=== PATIENT | male | born 1965 ===

== ENCOUNTER 2025-08-13 11:07 | Outpatient (REF) | payer OTHER, SELFPAY ==
[2025-08-13 17:45] LABS: MANUAL DIFF FLAG NO
[2025-08-13 17:55] LABS: Appearance Urine Clear; Glucose Urine UA Negative (Negative); PH 6.5 (5.0-9.0); Specific Gravity - Urine 1.020 (1.005-1.025)
[2025-08-13 18:05] LABS: Hematocrit 47.0 % (42.0-52.0); Hemoglobin 15.3 g/dl (14.0-18.0); Imm Gran Abs Auto 0.01 X10*3/uL (0.00-0.03); Imm Gran Pct Auto 0.1 % (0.0-0.4); Lymphocytes Absolute Auto 4.2 X10*3/uL (1.2-4.9); Mean Corpuscular HGB Conc 32.6 g/dl (31.0-36.0); Mean Corpuscular Hemoglobin 29.5 pg (27.0-33.0); Mean Corpuscular Volume 90.7 fL (80.0-98.0); NRBC Abs Auto 0.000 X10*3/uL (0.0-0.012); NRBC Pct Auto 0.0 /100WBC (0.0-0.2); Platelet Count 245 X10*3/uL (160-400); Red Blood Count 5.18 X10*6/uL (4.60-5.80); White Blood Count 8.2 X10*3/uL (4.8-10.8)
[2025-08-13 18:34] LABS: Alanine Aminotransferase 100 U/L (0-40); Albumin Level 4.7 g/dL (3.5-5.0); Alkaline Phosphatase 140 U/L (39-117); Anion Gap 14 (12-20); Aspartate Amino Transferase 47 U/L (5-37); Blood Urea Nitrogen 14 mg/dL (9-16); Calcium 9.6 mg/dL (8.4-10.2); Carbon Dioxide 26 mmol/L (22-29); Chloride 105 mmol/L (96-108); Cholesterol 161 mg/dL (<200); Estimated Glomerular Filt Rate > 60; HDL Cholesterol 56 mg/dL (>40); Magnesium 2.0 mg/dL (1.6-2.6); Potassium 3.7 mmol/L (3.3-5.1); Sodium 141 mmol/L (135-145); Total Protein 8.2 g/dL (6.5-8.0); Triglycerides 75 mg/dL (<150)
[2025-08-13 18:55] LABS: Folate 9.9 ng/mL (> or = 4.0); Vitamin B12 518 pg/mL (200-900)
[2025-08-14 05:49] LABS: HBS Num1 0.10 mIU/mL (0-7.99); HBsAGNum1 0.48 S/CO (0.00-0.99); HIV Num 1 0.07 S/CO (0.00-0.99); Hepatitis B Surface Antigen Negative (Negative); ~HepC Num1 9.83 S/CO (0.00-0.79); ~Hepatitis B Surface Antibody NONREACTIVE (Nonreactive); ~Hepatitis C Antibody Reactive (Nonreactive)
[2025-08-14 06:03] LABS: Syphilis Screen Nonreactive (Nonreactive)
[2025-08-17 17:58] LABS: VITAMIN D (1,25 OH) D3 66 pg/mL; Vit D (1,25-Dihydroxy) Total 66 pg/mL (18-72); Vitamin D (1,25 OH) D2 <8 pg/mL
[2025-08-17 21:03] LABS: HCV Log PCR 5.91 Log IU/mL (NOT DETECTED)
== END 2025-08-13 11:08 | disposition home or self-care (01) ==
LOC: HO.HKASLDS 11:07
PROVIDERS: PCP Student in an Organized Health Care Education/Training Program; Visit Provider Student in an Organized Health Care Education/Training Program
DX: Z13.9 Encounter for screening, unspecified (principal); B36.0 Pityriasis versicolor; R10.13 Epigastric pain; F19.11 Other psychoactive substance abuse, in remission; R53.83 Other fatigue; H61.23 Impacted cerumen, bilateral; L85.3 Xerosis cutis; Z86.19 Personal history of other infectious and parasitic diseases; Z87.891 Personal history of nicotine dependence
CPT/HCPCS: 36415; 80053; 80061; 81003; 82607; 82652; 82746; 83036; 83735; 84443; 85025; 86706; 86780; 86803; 87340; 87389; 87522

== ENCOUNTER 2025-08-31 10:28 | Outpatient (AMB) | payer OTHER, SELFPAY ==
[2025-08-31 10:37] VITALS: BP 134/68; PULSE 61; TEMP 36.4; O2SAT 97; BMI 25.2
--- NOTE | 2025-08-31 10:37 | MHC.PC.OV ---
Vital Signs 08/31/25 10:37 Height 5 ft 9 in Weight 171 lb BMI 25.2 BP 134/68 Blood Pressure Location Rt brachial Position Sitting Pulse 61 Pulse Source Pulse Oximeter Temp 97.6 F Temp Source Oral Pulse Oximetry (%) 97 Oxygen Delivery Method Room Air Intake Visit Reasons: 2 wk - lab review Accompanied by: Self / Same As Patient Allergies No Known Allergies Allergy (Verified 08/31/25 10:38) Medication List - Last Reconciled 08/31/25 by Miky Nicholson MD ammonium lactate 5% (Lac-Hydrin Five) 1 appl topical BID carbamide peroxide 6.5% (Debrox) 5 drps otic (ears) Q12H 4 days ketoconazole 2% 1 appl topical 3XW Tobacco use date assessed: 08/31/25 Dental Screening Dental Screen Date: 08/31/25 Did you have a dental visit in the last 12 months?: Yes HPI HPI Comments History of Present Illness Details History of Present Illness The patient is a 60 year old male presenting for follow-up to review lab results and manage chronic conditions. Chronic Hepatitis C: The patient has a known history of chronic hepatitis C but reports that he has never received treatment for this condition. History of Opioid Use Disorder: The patient reports a history of heroin and fentanyl use. He states his last use was in the previous year and that he is no longer using illicit substances. Bipolar Disorder: The patient has a history of bipolar disorder. He was previously on medication for this condition while in [place] but is not currently taking any medication. He does not recall the name of the previous medication. Pulmonary Nodule: A test from August 2024 revealed a nodule in the base of the left lung. The patient reported that he was not previously aware of this finding. Medications: - The patient is not currently taking any medications but reports previously being treated with an unspecified medication for bipolar disorder while in [place]. Social History: - Substance Use: The patient has a history of heroin and fentanyl use and reports his last use was in the previous year. - Tobacco Use: The patient has a history of smoking and reports that he has quit. - Employment: He is currently employed and works. - Social Support: He reports attending shinto regularly. Diagnostic Results: - CBC: White blood cells, red blood cells, hemoglobin, and platelets are normal. - CMP: Sodium, potassium, electrolytes, and kidney function are normal. - Glucose: Normal, patient is not prediabetic. - Minerals: Calcium and magnesium are normal. - Liver Function Tests: Liver enzymes are elevated. - Lipid Panel: Cholesterol, triglycerides are normal. - Vitamins: Vitamin B12, vitamin D, and folate are normal. - Thyroid function tests: Normal. - Urinalysis: Normal. - Infectious Disease Serologies: Positive for hepatitis C; negative for syphilis, hepatitis B, and HIV. - Imaging: A prior test from August 2024 revealed a nodule in the base of the left lung. Past Medical History - Chronic hepatitis C, untreated. - Bipolar disorder, not currently on medication. - Opioid use disorder in remission, with a history of heroin and fentanyl use. - Pulmonary nodule in the left lung base, identified in August 2024. Health Maintenance - The patient was counseled on the importance of treating his chronic hepatitis C. - Recent bloodwork included screening for hepatitis B, hepatitis C, HIV, and syphilis. - The patient affirms he has stopped using illicit substances and has quit smoking. [facility] Medical History Xerosis cutis Impacted cerumen of both ears Fatigue History of tobacco use Substance abuse in remission Dyspepsia History of hepatitis C virus infection Tinea versicolor Hepatitis C Family History Family/Other Cancer Sister Diabetes Brother Diabetes Mother Diabetes Social History (Reviewed 08/31/25 @ 10:38 by Lenora Briseno [facility]) Housing: House Alcohol intake: former Patient Tobacco Use Status: Former Tobacco user Years Smoked: stopped smoke a couple months ago e-Cigarette/Vaping Use: Never Used service: No Current occupational status: employed Current occupation: [employer] Cognitive needs: No Hearing needs: No Vision needs: Yes Questionnaire PHQ-9 Over the last 2 weeks, how often have you been bothered by any of the following problems? 1. Little interest or pleasure in doing things: several days 2. Feeling down, depressed, or hopeless: not at all 3. Trouble falling or staying asleep, or sleeping too much: several days 4. Feeling tired or having little energy: several days 5. Poor appetite or overeating: not at all 6. Feeling bad about yourself - or that you are a failure or have let yourself or your family down: not at all 7. Trouble concentrating on things, such as reading the newspaper or watching television: not at all 8. Moving or speaking so slowly that other people could have noticed. Or the opposite - being so fidgety or restless that you have been moving around a lot more than usual: not at all 9. Thoughts that you would be better off or of hurting yourself in some way: not at all Total score: 3 Depression Screening Interpretation: Negative Depression Screening Done: Yes 24869 - PHQ-9 Billing: Yes Source: Developed by Drs. Abhi Lennon, Yenny Morillo, Brendan Meehan and colleagues, with an educational tye from [employer]. Thrive Questionnaire Date Thrive assessed: 08/31/25 I am a: Patient What is your living situation today?: I have a steady place to live Within the past 12 months, did the food you bought not last and you didn't have the money to get more?: Never true Within the past 12 months, did you worry whether your food would run out before you got money to buy more?: Never true Do you have trouble paying for medicines?: No Do you have trouble getting transportation to medical appointments?: No Do you have trouble paying your heating and electricity bill?: No Do you have trouble taking care of your child, family member or friend?: No Are you currently unemployed and looking for a job?: No Are you interested in more education?: No Currently or been in a relationship where the following occur: No concerns reported THRIVE Score: 0 AUDIT C Alcohol Use Questionnaire (AUDIT-C) 1. How often do you have a drink containing alcohol?: Monthly or less 2. How many drinks containing alcohol do you have on a typical day when you are drinking?: 1 or 2 3. How often do you have six or more drinks on one occasion?: Less than monthly Total Score: 2 ERICA-7 AMB Questionnaire ERICA-7 Date ERICA - 7 assessed: 08/31/25 Feeling nervous, anxious, or on edge: 1 = Several days Not being able to stop or control worryin = Several days Worrying too much about different things: 1 = Several days Trouble relaxin = Several days Being so restless that it is hard to sit still: 0 = Not at all Becoming easily annoyed or irritable: 1 = Several days Feeling afraid as if something awful might happen: 0 = Not at all Total ERICA-7 score (0-4 normal; 5-9 mild; 10-14 moderate; 15-21 severe): 5 Source: Developed by Drs. Abhi Lennon, Yenny Morillo, Brendan Meehan and colleagues, with an educational tye from [employer]. ERICA-7 Assessment Billing ERICA-7 Assessment Tool: ERICA-7 Assessment 67347 Review of Systems Narrative Review of Systems - A formal review of systems was not conducted; the visit focused on reviewing past medical records and recent lab results. 10-point ROS reviewed and negative except as noted in HPI Physical exam (Primary Care) Vital Signs: Last Vital Signs Temp 97.6 F 08/31/25 10:37 Pulse 61 08/31/25 10:37 BP 134/68 08/31/25 10:37 Pulse Ox 97 08/31/25 10:37 Oxygen Delivery Method Room Air 08/31/25 10:37 BMI result Body Mass Index 25.2 Tobacco/Smoking Status: Tobacco use Status Tobacco use date assessed 08/31/25 08/31/25 10:38 Patient Tobacco Use Status Former Tobacco user 08/31/25 10:38 e-Cigarette/Vaping Use Never Used 08/31/25 10:38 PHQ-9: PHQ-9 Score PHQ-9: Total score 3 08/31/25 10:40 Depression Screening Interpretation: Negative Thrive Assessment: Date of Thrive Assessment Date Thrive assessed 08/31/25 08/31/25 10:38 Currently or been in a relationship where the following occur: No concerns reported Narrative Physical Exam General: Well-appearing, in no acute distress. Vital signs: Within normal limits. HEENT: Normocephalic, atraumatic. PERRLA, EOMI. Conjunctiva clear, sclera anicteric. Oropharynx clear, mucous membranes moist. TMs intact bilaterally. Neck: Supple, no lymphadenopathy, no thyromegaly, no JVD or carotid bruits. Cardiovascular: RRR, normal S1/S2, no murmurs, rubs, or gallops. Peripheral pulses 2+ and symmetric. No edema. Respiratory: Lungs clear to auscultation bilaterally, no wheezes, rales, or rhonchi. Normal effort. Noted nodule at the base of the left lung. Abdomen: Soft, non-tender, non-distended. Normoactive bowel sounds. No hepatosplenomegaly, no masses. Liver enzymes elevated. MSK: Full range of motion, no joint swelling or deformity. Normal gait. Skin: Warm, dry, intact. No rashes, lesions, or pallor. Neuro: Alert and oriented x3. Cranial nerves II-XII intact. Strength 5/5 throughout. Sensation intact. Reflexes 2+ symmetric. Normal coordination and gait. Psych: Appropriate mood and affect. Normal judgment and insight. History of bipolar disorder, currently not on medication. Coding Level of Care Code Est Pt Level 3 (70697) Add On Problem Visit Only Diagnoses Hepatitis C B19.20 Lung nodule R91.1 History of tobacco use Z87.891 Substance abuse in remission F19.11 History of opioid use F11.91 Additional Codes ERICA-7 Assessment Billing - ERICA-7 Assessment Tool: ERICA-7 Assessment 59395 ([id number]) PHQ-9 - 18413 - PHQ-9 Billing: Yes ([id number]) Assessment & Plan Assessment & Plan (1) Hepatitis C: Code(s): B19.20 - Unspecified viral hepatitis C without hepatic coma Category: Medical (2) Lung nodule: Code(s): R91.1 - Solitary pulmonary nodule Category: Medical (3) History of tobacco use: Code(s): Z87.891 - Personal history of nicotine dependence Category: Social Hx (4) Substance abuse in remission: Code(s): F19.11 - Other psychoactive substance abuse, in remission Category: Medical (5) History of opioid use: Code(s): F11.91 - Opioid use, unspecified, in remission Category: Medical Plan Consent The plan of care, including referrals to gastroenterology, infectious diseases, and pulmonology, was discussed with the patient. He was informed about the need for further blood work, an ultrasound of the liver, and a follow-up CT scan of the lungs. The patient verbally agreed to the proposed plan. Patient was informed and verbally consented to the use of an ambient scribe for clinic note documentation during this visit. Plan 1. Chronic Hepatitis C - Refer to Gastroenterology for management. - Refer to Infectious Diseases for management. - Order blood work today to assess the extent of liver damage. - Order a liver sonogram. 2. Pulmonary Nodule - Refer to Pulmonology for further evaluation and management. - The specialist will arrange for a follow-up CT scan. 3. Bipolar Disorder - Will attempt to obtain prior medical records from his previous physician in [place] to clarify past treatment. Discussion Notes I reviewed the patient's records and recent lab results with him. I informed him that his lab work is largely normal except for elevated liver enzymes and a positive result for hepatitis C. I also made him aware of a finding of a nodule in his left lung from a test in August 2024, which was new information to him. We discussed a plan to address these findings, which includes referrals to gastroenterology and infectious diseases for his hepatitis C, as well as a referral to pulmonology for the lung nodule. He will have blood drawn today to assess liver damage and will be scheduled for a liver sonogram. I reassured him that modern treatments for hepatitis C are effective and have fewer side effects than older medications. We also discussed the plan to request his medical records from his previous provider in [place] to review his past treatment for bipolar disorder. Patient Instructions - You will need to get blood drawn today to check your liver. - The clinic will call you to schedule an ultrasound of your liver. - We are referring you to a liver specialist (Gastroenterology) and an infection specialist (Infectious Diseases) to discuss treatment for your hepatitis C. They will contact you to schedule appointments. - We are also referring you to a lung specialist (Pulmonology) to check on the spot found on your lung. They will call you for an appointment and will likely order another CAT scan. - Please give the hotel front desk clerk staff the name and contact information for your previous doctor in [place] so we can request your medical records. - It is very important to follow up with these specialists to get the care you need. Medical Decision Making The patient is a 60-year-old male with a complex medical history including untreated chronic hepatitis C, bipolar disorder, and a history of opioid use, presenting for review of records and lab results. Lab work confirmed positive hepatitis C with elevated liver enzymes, necessitating specialist evaluation to stage the liver disease and initiate treatment. Referrals to both gastroenterology and infectious diseases are indicated for comprehensive management. The incidental finding of a left lower lobe pulmonary nodule, of which the patient was unaware, is concerning and requires prompt follow-up with pulmonology for further imaging to assess for stability or growth and to rule out malignancy. The patient's history of bipolar disorder is currently unmanaged, and he is not on medication. Obtaining prior records from his [place] physician is a critical first step to re-establishing psychiatric care and ensuring continuity of treatment. The plan focuses on addressing these significant medical issues through appropriate specialty referrals and diagnostic workup. Total Time Statement 20 min Total time spent caring for the patient today includes pre-visit chart review, documentation, review of laboratory and diagnostic imaging results, medication reconciliation, medically necessary evaluation, counseling on diagnoses, care coordination, ordering appropriate tests and medications, review of tests performed by other providers, reporting test results to the patient, and communication with other healthcare providers. Orders: Orders US abdomen limited Today B19.20 - Unspecified viral hepatitis C without hepatic coma Liver Fibrosis Pnl Today B19.20 - Unspecified viral hepatitis C without hepatic coma Referrals Gastroenterology Referral B19.20 - Unspecified viral hepatitis C without hepatic coma Infectious Disease Referral B19.20 - Unspecified viral hepatitis C without hepatic coma Pulmonology Referral R91.1 - Solitary pulmonary nodule Medications: New omeprazole 20 mg PO DAILY 30 caps 0RF
--- OUTSIDE RECORDS SUMMARY | 2025-08-31 12:50 | XMS_ITS | Clinical Summary ---
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 [place] [id number] Provider, Population Health Generic from Last 3 Months Social History Tobacco Use Types Packs/Day Years Used Date Smoking Tobacco: Never Assessed Sex and Gender Information Value Date Recorded Sex Assigned at Not on file Legal Sex Male 2:23 AM EDT Gender Identity Not on file Sexual Orientation Not on file Plan of Treatment Health Maintenance Due Date Last Done Comments CT Colonography 1963 Colonoscopy 1963 Colorectal Cancer Screening 1963 Depression Screening 1963 FIT DNA/Cologuard 1963 FIT 1963 FOBT 1963 HIV Screening 1963 Lipid Panel 1963 SDOH Screening 1963 Sigmoidoscopy 1963 Disability Screening 1963 Alcohol/Substance Use Screening 1975 Tobacco Screening 1975 Hepatitis C Screening 1981 DTaP/Tdap/Td Vaccines (1 - Tdap) 1982 Pneumococcal Vaccine: 50+ Ye ars (1 of 1 - PCV) 2013 Zoster Vaccines (1 of 2) 2013 COVID-19 Vaccine (1 - 2024-2 6 season) 2025 Influenza Vaccine (#1) 2025 RSV Patients and Pa tients Aged 60 years or older (1 - 1-dose 75+ series) 2038 HIB Vaccines Aged Out No longer eligi ble based on patient's age to complete this topic HPV Vaccines Aged Out No longer eligi ble based on patient's age to complete this topic Hepatitis A Vaccines Aged Out No long er eligible based on patient's age to complete this topic Hepatitis B Vaccines Aged Out No long er eligible based on patient's age to complete this topic IPV Vaccines Aged Out No longer eligi ble based on patient's age to complete this topic Meningococcal B Vaccine Aged Out No l onger eligible based on patient's age to complete this topic Meningococcal Vaccine Aged Out No irvin william eligible based on patient's age to complete this topic RSV under 20 months Aged Out No longe r eligible based on patient's age to complete this topic Rotavirus Vaccines Aged Out No longer eligible based on patient's age to complete this topic
== END 2025-08-31 11:04 | disposition home or self-care (01) ==
PROVIDERS: PCP Student in an Organized Health Care Education/Training Program; Visit Provider Student in an Organized Health Care Education/Training Program
DX: B19.20 Unspecified viral hepatitis C without hepatic coma (principal); R91.1 Solitary pulmonary nodule; Z87.891 Personal history of nicotine dependence; F19.11 Other psychoactive substance abuse, in remission; F11.91 Opioid use, unspecified, in remission

== ENCOUNTER 2025-08-31 10:28 | Outpatient (REF) | payer OTHER, SELFPAY ==
[2025-09-09 12:19] LABS: FIB-ALT 30 U/L (9-46); FIB-Alpha-2-Macroglobulin 354 mg/dL (106-279); FIB-Apolipoprotein A1 180 mg/dL (94-176); FIB-GGT 150 U/L (3-70); FIB-Haptoglobin 113 mg/dL (43-212); FIB-Total Bilirubin 0.6 mg/dL (0.2-1.2); Liver Fibrosis Score 0.68; Liver Fibrosis Stage F3; Nec Inflam Act Grade A0-A1; Nec Inflam Act Score 0.23
== END 2025-08-31 10:29 | disposition home or self-care (01) ==
LOC: HO.HKASLDS 10:28
PROVIDERS: PCP Student in an Organized Health Care Education/Training Program; Visit Provider Student in an Organized Health Care Education/Training Program
DX: B19.20 Unspecified viral hepatitis C without hepatic coma (principal); R91.1 Solitary pulmonary nodule; F19.11 Other psychoactive substance abuse, in remission; F11.91 Opioid use, unspecified, in remission; Z87.891 Personal history of nicotine dependence
CPT/HCPCS: 36415; 81596